=== PATIENT | female | born 2000 | race African-American/Black ===

== ENCOUNTER 2019-09-24 13:13 | Outpatient (CLI) | payer OTHER | END 2019-09-24 19:17 | disposition home or self-care (01) | LOC: LAB 13:13 | DX: N39.0 Urinary tract infection, site not specified (principal) | CPT/HCPCS: 87086; 87088 ==

== ENCOUNTER 2019-12-10 11:38 | Outpatient (CLI) | payer OTHER | END 2019-12-10 19:30 | disposition home or self-care (01) | LOC: LAB 11:38 | DX: R30.0 Dysuria (principal) | CPT/HCPCS: 87086; 87088 ==

== ENCOUNTER 2019-12-12 11:06 | Outpatient (CLI) | payer OTHER ==
[2019-12-12 11:18] LABS: PLATELET COUNT 277 K/uL (152-353)
[2019-12-12 11:33] LABS: POTASSIUM 4.4 mmol/L (3.6-5.2)
== END 2019-12-12 19:49 | disposition home or self-care (01) ==
LOC: LAB 11:06
PROVIDERS: Nurse Practitioner Family
DX: Z00.00 Encounter for general adult medical examination without abnormal findings (principal); R53.83 Other fatigue; R53.81 Other malaise
CPT/HCPCS: 80053; 80061; 83036; 84439; 84443; 84481; 85027

== ENCOUNTER 2020-01-22 10:21 | Outpatient (CLI) | payer OTHER | END 2020-01-22 23:21 | disposition home or self-care (01) | LOC: LABW 10:21 | DX: R30.0 Dysuria (principal) | CPT/HCPCS: 87086; 87088 ==